=== PATIENT | female | born 1980 | race Caucasian/White ===

== ENCOUNTER 2021-01-02 17:17 | Inpatient (IN) | payer BC, OTHER ==
[~2021-01-02] VITALS: Ht 170.2 cm; Wt 113.4 kg
[~2021-01-02 17:17] MED LIST: BASAGLAR K100 UNIT/1 SC; CLEOCIN HCL300 MG PO; IBUPROFEN400 MG PO; VICTOZA 1818 MG/3 ML SC
[2021-01-02 19:16] LABS: HEMOGLOBIN 11.4 gm/dl (12.3-15.3); RED BLOOD COUNT 4.02 M/UL (4.00-5.10); WHITE BLOOD COUNT 20.2 K/UL (4.5-11.0)
[2021-01-02 19:19] LABS: BUN/CREATININE RATIO 11 (0-10)
[2021-01-02] MEDS ORDERED: HUMALOG100 UNIT/3 SC (22:46)
[2021-01-02] MEDS ORDERED: ATORVASTATIN CA20 MG PO (22:48)
[2021-01-02] MEDS ORDERED: LISINOPRIL20 MG PO (22:48)
[2021-01-03 06:21] LABS: HEMOGLOBIN 9.8 gm/dl (12.3-15.3)
[2021-01-03 06:26] LABS: RED BLOOD COUNT 3.53 M/UL (4.00-5.10); WHITE BLOOD COUNT 12.7 K/UL (4.5-11.0)
[2021-01-03 06:38] LABS: BUN/CREATININE RATIO 13 (0-10)
[2021-01-05 08:11] LABS: BUN/CREATININE RATIO 14 (0-10)
[2021-01-06 03:53] LABS: BUN/CREATININE RATIO 13 (0-10)
--- NOTE | 2021-01-06 04:27 | NUR ---
APPROX. 1900 ON 01/05/21: EDUCATED PT ON THE RISKS AND FACTORS OF LEAVING AMA.
[2021-01-06] MEDS ORDERED: LEVOFLOXACIN750 MG PO (10:09)
== END 2021-01-06 12:45 | disposition home or self-care (01) | DRG 264 ==
LOC: ER1 17:17 → MED SURG 4 20:38 → CDU 20:38 → MED SURG 4 22:14
PROVIDERS: Internal Medicine; Physician Assistant; ADMIT Internal Medicine
PROC: 3E02340 Introduction of Influenza Vaccine into Muscle, Percutaneous Approach (ICD-10-PCS; principal; 2021-01-02)
PROC: 0JBQ0ZZ Excision of Right Foot Subcutaneous Tissue and Fascia, Open Approach (ICD-10-PCS; 2021-01-04)
DX: E11.52 Type 2 diabetes mellitus with diabetic peripheral angiopathy with gangrene (principal); L02.611 Cutaneous abscess of right foot; L03.115 Cellulitis of right lower limb; E11.628 Type 2 diabetes mellitus with other skin complications; F17.210 Nicotine dependence, cigarettes, uncomplicated; I10 Essential (primary) hypertension; E66.9 Obesity, unspecified; Z79.4 Long term (current) use of insulin; Z88.0 Allergy status to penicillin; Z90.49 Acquired absence of other specified parts of digestive tract; Z23 Encounter for immunization
CPT/HCPCS: 36415; 73630; 73718; 80048; 80053; 80202; 82962; 83605; 85025; 85652; 86140; 87040; 87070; 87077; 87186; 87205; 93926; 96365; 96366; 96375; 99285; J1650; J1956; J2270; J2405; J3370; J7030; J7070; U0002

== ENCOUNTER → 2021-06-17 | Outpatient (CLI) | payer BC ==
[~2021-06-17] MED LIST changes: +ATORVASTATIN CA20 MG PO; +HUMALOG100 UNIT/3 SC; +LEVOFLOXACIN750 MG PO; +LISINOPRIL20 MG PO
== END ==
LOC: LBRF 17:21
DX: E11.621 Type 2 diabetes mellitus with foot ulcer (principal); L97.519 Non-pressure chronic ulcer of other part of right foot with unspecified severity
CPT/HCPCS: 87070; 87077; 87186; 87205

== ENCOUNTER 2021-06-25 10:40 | Inpatient (IN) | payer BC ==
[~2021-06-25] VITALS: Ht 167.6 cm; Wt 110.2 kg
[~2021-06-25 10:40] MED LIST changes: -HUMALOG100 UNIT/3 SC
[2021-06-25 11:17] LABS: HEMOGLOBIN 11.6 gm/dl (12.3-15.3); RED BLOOD COUNT 4.37 M/UL (4.00-5.10)
[2021-06-25 11:41] LABS: BUN/CREATININE RATIO 8 (0-10)
[2021-06-25] MEDS ORDERED: LANTUS SOL100 UNIT/1 INJ (17:19)
[2021-06-25] MEDS ORDERED: ASCORBIC ACID500 MG PO (17:21)
[2021-06-25 18:06] LABS: BUN/CREATININE RATIO 8 (0-10)
[2021-06-25] MEDS ORDERED: HUMALOG100 UNIT/3 SC (22:46)
[2021-06-26 00:35] LABS: BUN/CREATININE RATIO 8 (0-10)
[2021-06-26 04:14] LABS: WHITE BLOOD COUNT 16.1 K/UL (4.5-11.0)
[2021-06-26 04:21] LABS: HEMOGLOBIN 9.4 gm/dl (12.3-15.3); RED BLOOD COUNT 3.63 M/UL (4.00-5.10)
[2021-06-26 04:36] LABS: BUN/CREATININE RATIO 9 (0-10)
[2021-06-26 18:35] LABS: BUN/CREATININE RATIO 15 (0-10)
[2021-06-27 06:35] LABS: HEMOGLOBIN 9.6 gm/dl (12.3-15.3); RED BLOOD COUNT 3.73 M/UL (4.00-5.10); WHITE BLOOD COUNT 15.5 K/UL (4.5-11.0)
[2021-06-27 06:52] LABS: BUN/CREATININE RATIO 18 (0-10)
[2021-06-28 08:00] LABS: RED BLOOD COUNT 4.08 M/UL (4.00-5.10); WHITE BLOOD COUNT 13.7 K/UL (4.5-11.0)
[2021-06-28 08:10] LABS: BUN/CREATININE RATIO 21 (0-10)
[2021-06-28] MEDS ORDERED: ACETAMINOPHEN325 MG PO (09:48)
[2021-06-28] MEDS ORDERED: FERROUS SULFAT325 M2 PO (09:48)
[2021-06-28] MEDS ORDERED: AMLODIPINE BESYL5 MG PO (09:48)
[2021-06-28] MEDS ORDERED: invanz (09:50)
[2021-06-28] MEDS ORDERED: daptomycin (09:50)
[2021-06-28] MEDS ORDERED: CUBICIN 500 MG500 MG IV (13:31)
[2021-06-28] MEDS ORDERED: INVANZ 1 GM VIAL1 GM IV (13:32)
[2021-06-29 10:15] LABS: CREATININE, URINE 82.7 mg/dL (Not Estab.)
== END 2021-06-28 18:01 | disposition home health service (06) | DRG 853 ==
LOC: ER1 10:40 → CDU 15:33 → M/S 06-26 12:50
PROVIDERS: Internal Medicine Nephrology; Physician Assistant; Physician Assistant Medical; Surgery; ADMIT Internal Medicine
PROC: 0Y6M0Z8 Detachment at Right Foot, Complete 5th Ray, Open Approach (ICD-10-PCS; principal; 2021-06-26 09:58)
DX: A41.9 Sepsis, unspecified organism (principal); A48.0 Gas gangrene; E11.52 Type 2 diabetes mellitus with diabetic peripheral angiopathy with gangrene; M86.8X7 Other osteomyelitis, ankle and foot; Z20.822 Contact with and (suspected) exposure to COVID-19; E83.39 Other disorders of phosphorus metabolism; F17.210 Nicotine dependence, cigarettes, uncomplicated; E11.69 Type 2 diabetes mellitus with other specified complication; E87.6 Hypokalemia; I10 Essential (primary) hypertension; R63.1 Polydipsia; E78.5 Hyperlipidemia, unspecified; E66.9 Obesity, unspecified; E11.65 Type 2 diabetes mellitus with hyperglycemia; Z79.4 Long term (current) use of insulin; Z90.49 Acquired absence of other specified parts of digestive tract; Z87.59 Personal history of other complications of pregnancy, childbirth and the puerperium; Z88.1 Allergy status to other antibiotic agents; Z88.0 Allergy status to penicillin; Z83.3 Family history of diabetes mellitus; Z68.39 Body mass index [BMI] 39.0-39.9, adult
CPT/HCPCS: 36415; 71045; 73700; 80048; 80053; 80202; 81001; 82043; 82550; 82553; 82570; 82962; 83036; 83540; 83550; 83605; 83735; 83874; 83880; 84100; 84156; 84439; 84443; 84484; 85025; 85027; 85652; 86140; 87040; 93005; 93926; 93971; 96374; 96375; 97161; 99285; C1751; J0878; J1100; J1335; J2001; J2185; J2270; J2405; J2550; J2704; J3010; J3370; J7030; J7070; J7120; U0002

== ENCOUNTER → 2021-07-12 | Outpatient (CLI) | payer BC ==
[~2021-07-12] MED LIST changes: +ACETAMINOPHEN325 MG PO; +AMLODIPINE BESYL5 MG PO; +ASCORBIC ACID500 MG PO; +CUBICIN 500 MG500 MG IV; +FERROUS SULFAT325 M2 PO; +HUMALOG100 UNIT/3 SC; +INVANZ 1 GM VIAL1 GM IV; +LANTUS SOL100 UNIT/1 INJ; +daptomycin; +invanz
[2021-07-12 15:29] LABS: HEMOGLOBIN 10.3 gm/dl (12.3-15.3); RED BLOOD COUNT 3.98 M/UL (4.00-5.10); WHITE BLOOD COUNT 9.8 K/UL (4.5-11.0)
[2021-07-12 15:43] LABS: BUN/CREATININE RATIO 27 (0-10)
== END ==
LOC: LBRF 14:14
PROVIDERS: Internal Medicine
DX: Z79.2 Long term (current) use of antibiotics (principal)
CPT/HCPCS: 80053; 82550; 85025

== ENCOUNTER → 2021-08-03 | Outpatient (CLI) | payer BC ==
[2021-08-03 16:26] LABS: HEMOGLOBIN 11.2 gm/dl (12.3-15.3); RED BLOOD COUNT 4.2 M/UL (4.00-5.10); WHITE BLOOD COUNT 9.5 K/UL (4.5-11.0)
[2021-08-03 16:52] LABS: BUN/CREATININE RATIO 24 (0-10)
== END ==
LOC: LBRF 15:42
PROVIDERS: Surgery
DX: Z79.2 Long term (current) use of antibiotics (principal)
CPT/HCPCS: 80053; 82550; 85025